=== PATIENT | female | born 1985 | race Caucasian/White ===

== ENCOUNTER 2023-09-02 23:59 | Emergency (ER) | payer MEDICARE, SELFPAY ==
[2023-09-03] VITALS: BP 145/94
[2023-09-03] MEDS: BENADRYL IV (01:01)
[2023-09-03] MEDS: NSS IV (01:01)
[2023-09-03] MEDS: REGLAN IV (01:01)
[2023-09-03 01:02] VITALS: BMI 22.7
[2023-09-03 01:05] VITALS: BP 106/74
[2023-09-03] MEDS: BENADRYL 25 MG IV (01:39)
[2023-09-03] MEDS: NSS 1000 IV (01:40)
[2023-09-03] MEDS: REGLAN 10 MG IV (01:40)
--- NOTE | 2023-09-03 01:52 | ED.GENMED ---
History of Present Illness
General
Chief Complaint: Headache
Source: patient and family
Exam Limitations: none
Time Seen by Provider: 09/03/23 00:22
Travel History
Have you had any contact with someone who has COVID-19?: No
Do you have any symptoms of coronavirus? Fever > 100 degrees, chills, cough, shortness of breath, sore throat, loss of taste or smell, muscle aches, or headache?: No
History of Present Illness
History of Present Illness:
38-year-old female presents with a migraine. She reports that she has had a headache for about 2 days. She states that if she does not drink enough fluids with a headache for starts and gets worse. She does state that she did vomit and has little
bit of photophobia. Symptoms are the same as her previous migraines. No fevers. No neck pain. She states that at home her headache was bad and her father noticed that she seemed like she had passed out.
Past History
Past History
ED Past Medical History: Other (Substance abuse, migraines, anxiety)
Social History
Drug: Narcotics
Phy Exam
Physical Exam
Physical Exam:
CONSTITUTIONAL Patient alert and oriented to person, place and time. Well-appearing. Vital signs reviewed.
HEAD atraumatic, normocephalic.
EYES eyelids normal to inspection, Pupils equally round and reactive to light, Extraocular muscles intact, Conjunctiva normal, Sclera normal.
NECK normal range of motion, Trachea midline, no jugular venous distention.
RESPIRATORY CHEST No respiratory distress noted, Chest expansion equal, Bilateral breath sounds clear.
CARDIOVASCULAR regular rate and rhythm, Heart sounds normal.
ABDOMEN abdomen nontender, Bowel sounds normal. No distention.
BACK normal inspection, no obvious deformities
UPPER EXTREMITY range of motion normal, Motor strength normal, no cyanosis, no edema.
LOWER EXTREMITY range of motion normal, Motor strength normal, no cyanosis, no edema.
NEURO Speech normal, No focal motor deficits, Clarendon coma scale 15, Memory normal, Cranial Nerves intact to screening exam. No pronator drift.
SKIN skin warm, dry, and normal in color.
PSYCHIATRIC patient oriented to person place and time, Normal affect.
Course
Orders/Labs/Results
Orders:
Orders
09/03/23 00:29
0.9% Sodium Chloride 1000 ml [Nss] 1,000 ml IV BOLUS
Diphenhydramine [Benadryl] 25 mg IV NOW STA
Metoclopramide [Reglan] 10 mg IV NOW STA
09/03/23 00:30
Electrocardiogram (*1) Urgent
Reason for Study: Syncope
EKG- Treatment ONCE
Test Result ONCE
09/03/23 01:47
HCG, Urine Qualitative Screen Urgent
Date Specimen was Collected: 09/03/23
Time Specimen was Collected: 01:23
09/03/23 01:52
Vital Signs- Treatment ONCE
Frequency: Once
Vital Signs
Initial and Last Documented VS:
Initial Vital Signs
Temp Pulse Resp BP Pulse Ox
97.8 F 122 24 145/94 98
09/03/23 00:00 09/03/23 00:00 09/03/23 00:00 09/03/23 00:00 09/03/23 00:00
Last Documented Vital Signs
Temp Pulse Resp BP Pulse Ox
97.8 F 122 24 145/94 98
09/03/23 00:00 09/03/23 00:00 09/03/23 00:00 09/03/23 00:00 09/03/23 00:00
MDM/Problems Addressed
MDM/Problems Addressed:
Migraine, anxiety
*Pulse Oximetry
Patient hypoxic: no
*Critical Care Note
Total Time (30-74mins, 75-104mins- exclusive of procedures): Not Applicable
Data Reviewed
Source: patient and family
Further Testing Considered But Not Given:
Consider head CT but symptomatology over 2 days and no sudden onset of headache. Headache is same as previous migraines
Patient Management
Escalation/DeEscalation of care consider admission/obs:
Patient feels much improved. Okay for discharge and outpatient follow-up. Recommended good hydration over the next few days but also recommend PCP follow-up
ED Attending Note
-
Portions of this chart may have been created with voice recognition software.� Occasional wrong word or��sound alike� substitutions may have occurred due to the inherent limitations of voice recognition software.
Discharge Plan
Departure
Patient Disposition: Home (Routine Discharge)
Date of Disposition: 09/03/23
Time of Disposition: 02:09
Patient with high blood pressure during this ER visit?: Yes
Discharge Problem:
Migraine
Instructions: Migraines (DC), BLOOD PRESSURE
Prescriptions:
No Action
buprenorphine-naloxone 8-2 mg film
1 film buccal DAILY Qty: 30 0RF
Referrals:
NONE,* [Family Provider] -
Activity Restrictions/Additional Instructions:
Please drink plenty fluids. Return immediately for fevers, intractable vomiting, worsening symptoms or any other concerns. Please see your doctor in the next 2 to 3 days for follow-up and reevaluation as there are better management options as an
outpatient for migraines.
Interventions
Interventions:
*Risk Screen - Suicide Last Done: 09/03/23 00:00
*General Assessment Last Done: 09/03/23 01:02
*Neglect/Abuse Screening Last Done: 09/03/23 00:00
*ED COVID-19 Vaccine History Last Done: 09/03/23 01:02
ED- Neurological Assessment Last Done: 09/03/23 01:02
Discharge Date and Time
Print Language: [email or web address]
[2023-09-03 01:58] LABS: HCG, Urine Qualitative Screen Negative
[2023-09-03 02:15] VITALS: BP 116/68
== END 2023-09-03 02:30 | disposition home or self-care (01) ==
LOC: EMR 23:59
PROVIDERS: EMERGENCY PHYSICIAN Emergency Medicine
DX: G43.909 Migraine, unspecified, not intractable, without status migrainosus (principal); R11.10 Vomiting, unspecified; R03.0 Elevated blood-pressure reading, without diagnosis of hypertension; F41.9 Anxiety disorder, unspecified; Z88.8 Allergy status to other drugs, medicaments and biological substances
CPT/HCPCS: 99284; 96374; 96375; 96361; 81025